=== PATIENT | male | born 1985 | race Caucasian/White ===

== ENCOUNTER 2017-03-27 23:48 | Emergency (ER) | payer OTHER ==
--- NOTE | 2017-03-28 01:14 | EDPHY ---
H & P Stated Complaint: R hip pain; Hx of labrum tear Time Seen by Provider: 03/28/17 00:47 HPI/ROS: HPI The patient presents with right hip pain which has been present for the last 2 days which started spontaneously. He has a history of right labral tear status post orthopedic operation performed several years ago in [place]. He feels as if the labrum is torn again. His pain has been constant. He has not tried anything for pain because he thinks he needs strong pain medication. He does not have any numbness or tingling of his leg. He denies any trauma. He actually has an appointment tomorrow with his primary care doctor about back pain that he has been having. He has been self medicating with marijuana and alcohol. He is having difficulty using stairs and changing his clothes because of the pain. REVIEW OF SYSTEMS Constitutional: No fever, no chills. Eyes: No discharge. ENT: No sore throat. Cardiovascular: No chest pain, no palpitations. Respiratory: No cough, no shortness of breath. Gastrointestinal: No abdominal pain, no vomiting. Genitourinary: No hematuria. Musculoskeletal: No back pain. Skin: No rashes. Neurological: No headache. PMHx: Right hip labral tear Soc Hx: Lives in [place], uses alcohol, marijuana PHYSICAL General Appearance: Alert, no distress Eyes: Pupils equal and round no pallor or injection ENT, Mouth: Mucous membranes moist Respiratory: There are no retractions, lungs are clear to auscultation Cardiovascular: Regular rate and rhythm Gastrointestinal: Abdomen is soft and non-tender, no masses, bowel sounds normal Neurological: A&O, moves all extremities, sensation is intact to light touch in his right leg Skin: Warm and dry, no rashes Musculoskeletal: Right hip with near full flexion, limited external rotation secondary to pain, there is tenderness overlying the ASIS Extremities: symmetrical, full range of motion Psychiatric: Patient is oriented X 3, there is no agitation Source: Patient Exam Limitations: No limitations - Personal History Current Tetanus/Diphtheria Vaccine: Unsure - Medical/Surgical History Hx Asthma: No Hx Chronic Respiratory Disease: No Hx Diabetes: No Hx Cardiac Disease: No Hx Renal Disease: No Hx Cirrhosis: No Hx Alcoholism: No Hx HIV/AIDS: No Hx Splenectomy or Spleen Trauma: No Other PMH: PMHx: labrum tear R hip, anxiety and problems with concentration, childhood asthma. PSHx: L5-S1 microdiscectomy - Social History Smoking Status: Never smoked Constitutional: Initial Vital Signs Temperature (C) 36.7 C 03/27/17 23:50 Heart Rate 82 03/27/17 23:50 Respiratory Rate 16 03/27/17 23:50 Blood Pressure 113/76 03/27/17 23:50 O2 Sat (%) 92 03/27/17 23:50 O2 Delivery Mode Room Air Allergies/Adverse Reactions: No Known Allergies Allergy (Unverified 03/27/17 23:50) Home Medications: Medication Instructions Recorded Adderall 10 mg Tablet 03/27/17 Xanax 03/27/17 Medical Decision Making - Diagnostics Imaging Results: X-ray right hip two view shows no fracture, no dislocation, interpreted by me, radiology interpretation is pending Differential Diagnosis: 31-year-old man with several days of atraumatic right hip pain with history of labral tear and operation years ago. On exam he has limited range of motion secondary to pain. Differential diagnosis includes recurrent labral tear, hip sprain, less likely hip fracture. In the emergency department x-rays were obtained which showed no obvious fracture. The patient was given lidocaine patch, Toradol, gabapentin, Tylenol for his pain. He requested opiates, however I told him that this is not 1st line treatment for his pain. He has follow-up tomorrow with his primary care doctor and further medication can be discussed. I reinforced to him that anti- inflammatories are main stay of treatment for this sort of injury. I have referred him to orthopedics for follow-up as needed. - Data Points Medications Given: Discontinued Medications Acetaminophen (Tylenol) 1,000 mg PO EDNOW ONE Stop: 03/28/17 01:42 Last Admin: 03/28/17 02:00 Dose: 1,000 mg Dexamethasone (Decadron Injection) 8 mg PO EDNOW ONE Stop: 03/28/17 01:42 Last Admin: 03/28/17 02:00 Dose: 8 mg Gabapentin (Neurontin) 600 mg PO EDNOW ONE Stop: 03/28/17 01:42 Last Admin: 03/28/17 02:00 Dose: 600 mg Ketorolac Tromethamine (Toradol) 15 mg IM EDNOW ONE Stop: 03/28/17 01:42 Last Admin: 03/28/17 01:59 Dose: 15 mg Lidocaine (Lidoderm 5%) 1 ea TD EDNOW ONE Stop: 03/28/17 01:42 Last Admin: 03/28/17 02:01 Dose: 1 ea Departure - Departure Disposition: Home, Routine, Self-Care Clinical Impression: Acute right hip pain Condition: Good Instructions: Hip Pain (ED) Additional Instructions: Please return to the emergency room if your worse in any way. Otherwise, you should follow up with your regular doctor. I have referred you to Orthopedics, you can call to make an appointment. Referrals: Racquel Jiménez MD [Medical Doctor] - As per Instructions
[2017-03-28] MEDS ORDERED: GABAPENTIN 300 MG CAP PO ONE (01:41)
[2017-03-28] MEDS ORDERED: ACETAMINOPHEN 500 MG TAB PO ONE (01:41)
[2017-03-28] MEDS ORDERED: LIDOCAINE 5% 1 EA PATCH TD ONE (01:41)
[2017-03-28] MEDS ORDERED: DEXAMETHASONE 4 MG/ML VIAL PO ONE (01:41)
[2017-03-28] MEDS ORDERED: KETOROLAC 15 MG/1 ML SDV IM ONE (01:41)
[2017-03-28 02:17] VITALS: BP 125/85; PULSE 76; RESP 14; TEMP 97.9; O2SAT 99
[2017-03-28] MEDS ORDERED: PATCH REMOVAL 1 EA PATCH TD SCH (21:00)
== END 2017-03-28 02:16 | disposition home or self-care (01) ==
DX: M25.551 Pain in right hip (principal)
CPT/HCPCS: J1100; J1885